=== PATIENT | female | born 1985 | race Hispanic/Latino ===

== ENCOUNTER 2023-11-20 19:09 | Emergency (ER) | payer OTHER, SELFPAY ==
[2023-11-20 20:33] LABS: Absolute Basophils 0.1 K/uL (0-0.5); Absolute Eosinophils 0.1 K/uL (0-0.5); Absolute Monocytes 0.8 K/uL (0.1-1.3); Basophils % 0.6 % (0-1.3); Eosinophils % 0.4 % (0-4.4); Hematocrit 32.9 % (36.0-45.0); Hemoglobin 10.2 g/dL (12.0-15.0); Lymphocytes % 14.6 % (15.3-44.8); MCH 20.5 pg (27.0-35.0); MCV 66.1 fL (80-100); MPV 8.4 fL (7.6-11.3); Neutrophils % 78.4 % (41.7-73.7); Nucleated Red Blood Cells % 0.2 % (0-0); Platelets 368 thou/uL (152-406); RBC Red Blood Cell Count 4.97 M/uL (3.86-4.86); Red Cell Distribution Width 17.1 % (12.1-15.2)
[2023-11-20 20:42] LABS: Specific Gravity 1.029 (1.005-1.030); Sqamous Epithelial <5 /HPF (None Seen); Urine Bacteria <20 /HPF (<20); Urine Bilirubin NEGATIVE (Negative); Urine Blood 3+ (Negative); Urine Clarity Extremely Turbid (Clear); Urine Color Yellow (Yellow); Urine Culture Reflex Order REFLEXED; Urine Glucose 4+ (Negative); Urine Ketones 1+ (Negative); Urine Microscopic Reflex YN ORDER UMIC; Urine Mucus 2+ /HPF (None Seen); Urine Nitrite NEGATIVE (Negative); Urine Protein 2+ (Negative); Urine RBC 21-50 /HPF (None Seen); Urine Urobilinogen Normal (Normal); Urine WBC >50 /HPF (<5)
[2023-11-20 20:43] LABS: Specific Gravity 1.029 (1.005-1.030)
[2023-11-20] MEDS ORDERED: NA CHLORIDE 0.9% 1,000 ML ONE (20:59)
[2023-11-20 21:10] LABS: Blood Morphology Comment NOTED (NOT SEEN); Hypochromasia 1+; Microcytosis 1+; Platelet Estimate ADEQ; White Blood Cell Scan OK (OK)
--- NOTE | 2023-11-20 22:19 | RAD REPORT ---
EXAM DESCRIPTION: US - Transvaginal Study Probe - 11/20/2023 8:38 pm CLINICAL HISTORY: VAGINAL BLEEDING COMPARISON: No comparisons TECHNIQUE: Sonographic grayscale and color flow images of the pelvis were obtained. FINDINGS: The uterus is normal in size, and echotexture, with retroflexed morphology. The uterus norma sures 8.9 cm in length. Few nabothian cysts noted. The endometrial stripe measures 8 mm, normal. Both ovaries are normal in size, shape and echotexture. The right ovary measures 2.6 x 1.5 x 2.2 cm. The left ovary measures 3.0 x 2.0 x 1.9 cm. Dominant left ovarian follicle/ cyst with debris measur ing 1.3 cm. No ovarian or parovarian lesions. No adnexal masses. Normal Doppler blood flow was demonstrated to both ovaries. No significant pelvic ascites. IMPRESSION: Retroflexed uterus. Dominant left ovarian mildly complex cystic lesion, possibly a hemorrhagic cyst or follicle, measurin g 1.3 cm. No other acute findings.
--- NOTE | 2023-11-20 22:39 | RAD REPORT ---
EXAM DESCRIPTION: CT - Abdomen Pelvis W Contrast - 11/20/2023 9:52 pm CLINICAL HISTORY: ABD PAIN COMPARISON: No comparisons TECHNIQUE: Thin cut axial CT imaging of the abdomen and pelvis was performed following intravenous a dministration of limited oral contrast. Multiplanar reformats were generated and reviewed. All CT scans are performed using dose optimization technique as appropriate and may include automated exposure control or mA/KV adjustment according to patient size. FINDINGS: No suspicious findings in the lung bases. The liver, spleen, adrenal glands, and pancreas show no suspicious findings. Gallbladder and biliary tree are also without suspicious finding. Symmetric renal function is seen with no hydronephrosis or suspicious renal mass. No dilated bowel loops or bowel wall thickening. No free air, free fluid or inflammatory stranding. N o hernia, mass or bulky lymphadenopathy. 1.2 cm left ovarian cyst. The urinary bladder is without sig nificant finding. No suspicious bony findings. IMPRESSION: No acute intra-abdominal process.
--- NOTE | 2023-11-20 22:58 | ER ---
Nurse's Notes [facility] Name: Riana Martin Age: 38 yrs Sex: Female : 1985 Arrival Date: 11/20/2023 Time: 19:09 Bed 2 Private MD: Diagnosis: Other ovarian cysts;Iron deficiency anemia, unspecified;UTI/ Urinary tract infection, site not specified;Type 2 diabetes mellitus with hyperglycemia Presentation: 11/19 19:31 Chief complaint: Patient states: ABD PAIN AND VAGINAL SPOTTING STARTED YESTERDAY. SAW [facility]MER[facility] TODAY DID A UA AND A PELVIC EXAM. DR WAS CONCERNED SHE HAS A CYST ON HER LEFT FALLOPIAN TUBE OR THAT IT'S TWISTED. TOLD HER IF SHE CONTINUES TO HAVE PAIN GO TO TO THE ER. Coronavirus screen: At this time, the client does not indicate any symptoms associated with coronavirus-19. Ebola Screen: No symptoms or risks identified at this time. Initial Sepsis Screen: Does the patient meet any 2 criteria? HR > 90 bpm. Yes Does the patient have a suspected source of infection? No. Patient's initial sepsis screen is negative. Risk Assessment: Do you want to hurt yourself or someone else? Patient reports no desire to harm self or others. Note MOTRIN. 19:31 Method Of Arrival: Ambulatory [facility] 19:31 Acuity: KAVITA 3 7 23:17 Onset of symptoms was November 20, 2023. Triage Assessment: 19:38 General: Appears in no apparent distress. uncomfortable, Behavior is calm, cooperative, jj7 appropriate for age. Pain: Complains of pain in left lower quadrant Pain currently is 4 out of 10 on a pain scale. GI: Reports lower abdominal pain, nausea. : Reports pain with urination. 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 - Social history:: Smoking status: Patient denies any tobacco usage or history of. Patient/guardian denies using alcohol, street drugs, IV drugs. Screenin:40 [facility] ED Fall Risk Assessment (Adult) History of falling in the last 3 months, jj7 including since admission No falls in past 3 months (0 pts) Confusion or Disorientation No (0 pts) Intoxicated or Sedated No (0 pts) Impaired Gait No (0 pts) Mobility Assist Device Used No (0 pt) Altered Elimination No (0 pt) Score/Fall Risk Level 0 - 2 = Low Risk Oriented to surroundings, Maintained a safe environment, Educated pt \T\ family on fall prevention, incl call for assistance when getting out of bed. Abuse screen: Denies threats or abuse. Nutritional screening: No deficits noted. Tuberculosis screening: No symptoms or risk factors identified. Assessment: 20:35 General: Appears in no apparent distress. Behavior is calm, cooperative, appropriate ha1 for age. Pain: Complains of pain in abdomen and left lower quadrant Pain does not radiate. Pain at worst was 5 out of 10 on a pain scale. Quality of pain is described as aching, crampy, Pain began suddenly, Is continuous. Neuro: No deficits noted. Level of Consciousness is awake, alert, Oriented to person, place, time, situation. Cardiovascular: No deficits noted. Capillary refill < 3 seconds Patient's skin is warm and dry. Respiratory: No deficits noted. Airway is patent Respiratory effort is even, unlabored, Respiratory pattern is regular, symmetrical. GI: Abdomen is tender to palpation in left lower quadrant Reports lower abdominal pain, nausea. 21:30 Reassessment: Patient and/or family updated on plan of care and expected duration. Pain ha1 level reassessed. Patient is alert, oriented x 3, equal unlabored respirations, skin warm/dry/pink. going to CT. Vital Signs: 19:31 BP 149 / 88; Pulse 99; Resp 18; Temp 97.6; Pulse Ox 100% ; Weight 78.47 kg; Height 5 j7 ft. 0 in. ; Pain 4/10; 20:30 BP 136 / 85; Pulse 99; Resp 18; Pulse Ox 99% on R/A; ha1 19:31 Body Mass Index 33.79 (78.47 kg, 152.4 cm) 7 19:31 Pain Scale: Adult [facility] ED Course: 19:15 Patient arrived in ED. rg4 19:38 Triage completed. jj7 19:38 Princess Faria PA-C [facility]. sb4 19:38 Vinnie Mcclain MD is Attending Physician. sb4 19:38 Arm band placed on right wrist. jj7 19:40 Patient has correct armband on for positive identification. Adult w/ patient. jj7 20:34 Inserted saline lock: 20 gauge in right antecubital area, using aseptic technique. ha1 20:40 Transvaginal Study (probe) In Process Unspecified. EDMS 21:54 CT Abd/Pelvis - IV Contrast Only In Process Unspecified. EDMS 22:50 First set of blood cultures drawn by me. rv 23:05 Second set of blood cultures drawn by me. rv 23:16 Blood Culture Adult (2) Sent. rv 23:16 Lactate w/ 2H reflex if indic. Sent. rv 23:16 Protime (+inr) Sent. rv 23:16 Ptt, Activated Sent. rv 23:17 No provider procedures requiring assistance completed. IV discontinued, intact, rv bleeding controlled, No redness/swelling at site. Pressure dressing applied. Administered Medications: 21:01 Drug: NS 0.9% IV 1000 ml IV at 1 bolus Per protocol; 1000 mL bolus Route: IV; Rate: 1 rv bolus; Site: right antecubital; 23:31 Follow up: IV Status: Completed infusion; IV Intake: 1000ml rv 23:16 Drug: Rocephin IV 1 grams IV at calculated rate once; Given slow IV push per pharmacy rv instructions Route: IV; Rate: calculated rate; Site: right antecubital; 23:31 Follow up: Response: Medication administered at discharge.; IV Status: Completed rv infusion Medication: 23:17 VIS not applicable for this client. rv Intake: 23:31 IV: 1000ml; Total: 1000ml. rv Outcome: 22:58 Discharge ordered by . sb4 23:17 Discharged to home ambulatory, with family, rv 23:17 Condition: good 23:17 Discharge instructions given to patient, Instructed on discharge instructions, follow up and referral plans. medication usage, Demonstrated understanding of instructions, follow-up care, medications, Prescriptions given X 3, 23:31 Patient left the ED. rv Signatures: Dispatcher [employer] EDME Shelly Parrish rg4 Tomas Cabrera RN RN rv Kat Martinez RN RN ha1 Karri Sin RN RN jj7 Princess Faria PAKareemC PAKareemC sb4 Corrections: (The following items were deleted from the chart) 21:49 21:30 Reassessment: Patient and/or family updated on plan of care and expected ha1 duration. Pain level reassessed. Patient is alert, oriented x 3, equal unlabored respirations, skin warm/dry/pink. ha1
--- NOTE | 2023-11-20 22:59 | EDPHYS ---
Physician Documentation [facility] Name: Riana Martin Age: 38 yrs Sex: Female : 1985 Arrival Date: 11/20/2023 Time: 19:09 Bed 2 Private MD: DAVIDSON Physician Vinnie Mcclain HPI: 11/19 20:21 This 38 yrs old Female presents to ER via Ambulatory with complaints of sb4 Abdominal Pain. 20:21 Patient reports intermittent left lower quadrant abdominal pain for a few days now. She sb4 also states possible vaginal bleeding versus hematuria that began last night. She saw her sap basis consultant today who performed a vaginal exam and told her she probably has an ovarian cyst. Patient has a history of a tubal ligation. She denies any prior abnormal gynecologic workups. 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 - Social history:: Smoking status: Patient denies any tobacco usage or history of. Patient/guardian denies using alcohol, street drugs, IV drugs. ROS: 20:22 Constitutional: Negative for fever, chills, and weight loss, sb4 20:22 Abdomen/GI: Positive for abdominal pain, 20:22 : Positive for vaginal bleeding, 20:22 All other systems are negative, Exam: 20:22 Constitutional: This is a well developed, well nourished patient who is awake, alert, sb4 and in no acute distress. Head/Face: Normocephalic, atraumatic. Eyes: Extra-ocular motions intact. Periorbital areas with no swelling, redness, or edema. ENT: Mucous membranes moist. Cardiovascular: Regular rate and rhythm with a normal S1 and S2. Respiratory: Lungs have equal breath sounds bilaterally, clear to auscultation and percussion. No rales, rhonchi or wheezes noted. No increased work of breathing, no retractions or nasal flaring. Abdomen/GI: Soft, non-tender, no distension. Skin: Warm, dry with normal turgor. Normal color with no rashes, no lesions, and no evidence of cellulitis. MS/ Extremity: Pulses equal, no cyanosis. Neurovascular intact. Full, normal range of motion. Neuro: Awake and alert, GCS 15, oriented to person, place, time, and situation. Motor strength 5/5 in all extremities. Sensory grossly intact. 20:22 : Pelvic Exam: the exam is deferred, done by specialist, Vital Signs: 19:31 BP 149 / 88; Pulse 99; Resp 18; Temp 97.6; Pulse Ox 100% ; Weight 78.47 kg; Height 5 jj7 ft. 0 in. ; Pain 4/10; 20:30 BP 136 / 85; Pulse 99; Resp 18; Pulse Ox 99% on R/A; ha1 19:31 Body Mass Index 33.79 (78.47 kg, 152.4 cm) 7 19:31 Pain Scale: Adult j7 MDM: 19:43 Patient medically screened. sb4 22:58 Data reviewed: vital signs, nurses notes, lab test result(s), radiologic studies, and sb4 as a result, I will discharge patient. Counseling: I had a detailed discussion with the patient and/or guardian regarding the historical points, exam findings, and any diagnostic results supporting the discharge/admit diagnosis, lab results, radiology results, the need for outpatient follow up, an OB/Gyne specialist, to return to the emergency department if symptoms worsen or persist or if there are any questions or concerns that arise at home. 22:59 ED course: Will defer antibiotic prescription as she was already given prescriptions sb4 for metronidazole and Macrobid by her sap basis consultant earlier today. Instructed to take them as prescribed. 11/19 20:17 Order name: Basic Metabolic Panel; Complete Time: 20:49 sb4 11/19 20:17 Order name: CBC with Diff; Complete Time: 21:11 sb4 11/19 20:17 Order name: Test, Urine; Complete Time: 20:46 sb4 11/19 20:17 Order name: Urinalysis w/ reflexes; Complete Time: 20:46 sb4 11/19 20:46 Order name: Urine Culture EDMS 11/19 21:11 Order name: CBC Smear Scan; Complete Time: 21:11 EDMS 11/19 22:48 Order name: Blood Culture Adult (2) sb4 11/19 22:48 Order name: Lactate w/ 2H reflex if indic. sb4 11/19 22:48 Order name: Protime (+inr) sb4 11/19 22:48 Order name: Ptt, Activated sb4 11/19 20:17 Order name: Transvaginal Study (probe); Complete Time: 22:21 sb4 11/19 20:37 Order name: CT Abd/Pelvis - IV Contrast Only; Complete Time: 22:40 sb4 11/19 20:17 Order name: IV Saline Lock; Complete Time: 20:21 sb4 11/19 20:17 Order name: Labs collected and sent; Complete Time: 20:21 sb4 Administered Medications: 21:01 Drug: NS 0.9% IV 1000 ml IV at 1 bolus Per protocol; 1000 mL bolus Route: IV; Rate: 1 rv bolus; Site: right antecubital; 23:31 Follow up: IV Status: Completed infusion; IV Intake: 1000ml rv 23:16 Drug: Rocephin IV 1 grams IV at calculated rate once; Given slow IV push per pharmacy rv instructions Route: IV; Rate: calculated rate; Site: right antecubital; 23:31 Follow up: Response: Medication administered at discharge.; IV Status: Completed rv infusion Disposition Summary: 11/20/23 22:58 Discharge Ordered Notes: Location: Home sb4 Problem: new sb4 Symptoms: have improved sb4 Condition: Stable sb4 Diagnosis - Other ovarian cysts sb4 - Iron deficiency anemia, unspecified sb4 - UTI/ Urinary tract infection, site not specified sb4 - Type 2 diabetes mellitus with hyperglycemia sb4 Followup: sb4 - With: Emergency Department - When: As needed - Reason: Trouble breathing, Worsening of condition Discharge Instructions: - Discharge Summary Sheet sb4 - Iron Deficiency Anemia, Adult sb4 - Urinary Tract Infection, Adult, [id number] sb4 - Ovarian Cyst, [id number] sb4 Forms: - Thank You Letter sb4 - Antibiotic Education sb4 - Prescription Opioid Use sb4 - Patient Portal Instructions sb4 - Leadership Thank You Letter sb4 Prescriptions: - Tramadol 50 mg Oral Tablet - take 1 tablet ORAL route every 8 hours as needed; 12 tablet; Refills: 0, sb4 Product Selection Permitted Signatures: Dispatcher [employer] Tomas Johnston RN RN rv Karri Sin RN RN jj7 Princess Faria, RUIZ MELCHOR sb4
[2023-11-20] MEDS ORDERED: WATER FOR INJ,STERILE 10 ML ONE (23:07)
[2023-11-20] MEDS ORDERED: CEFTRIAXONE 1000 MG/VIAL ONE (23:07)
[2023-11-20 23:36] LABS: PT Prothrombin Time 11.3 SECONDS (9.5-12.5); PTT, Activated Partial Thromb 26.8 SECONDS (24.3-36.9); Protime INR 1.03
[2023-11-21 01:41] VITALS: BP 136/85; TEMP 97.6; O2SAT 99
== END 2023-11-20 23:31 | disposition home or self-care (01) ==
LOC: ER 19:09
DX: N83.299 Other ovarian cyst, unspecified side (principal); D50.9 Iron deficiency anemia, unspecified; N39.0 Urinary tract infection, site not specified; E11.65 Type 2 diabetes mellitus with hyperglycemia
CPT/HCPCS: 36415; 74177; 76830; 80048; 81001; 81025; 83605; 85025; 85610; 85730; 87040; 87077; 87086; 87088; 87186; 96361; 96374; 99284; J0696; J7030; Q9967